=== PATIENT | female | born 1950 | race Caucasian/White ===

== ENCOUNTER → 2016-08-17 | Outpatient (CLI) | payer MEDICARE ==
--- NOTE | 2016-08-17 10:18 | MM ---
Reason for exam: screening (asymptomatic). Last mammogram was performed 2 years and 2 months ago. History: Patient is postmenopausal. Family history of breast cancer in maternal aunt and breast cancer in maternal grandmother. 4 benign cyst aspirations of the left breast. Benign cyst aspiration of the right breast. Taking estrogen for 11 years beginning at age 42. Taking progesterone for 11 years beginning at age 42. Taking other hormone for 23 years beginning at age 34. Physical Findings: A clinical breast exam by your physician is recommended on an annual basis and results should be correlated with mammographic findings. MG 3D Screening Mammo W/Cad Bilateral CC and MLO view(s) were taken. Prior study comparison: June 04, 2014, bilateral MG screening mammo w CAD. November 07, 2012, bilateral digital screening mammo w/CAD. There are scattered fibroglandular densities. No significant changes when compared with prior studies. ASSESSMENT: Benign, BI-RAD 2 RECOMMENDATION: Routine screening mammogram of both breasts in 1 year.
== END | disposition home or self-care (01) ==
LOC: RADMAMWWP 08:14
PROVIDERS: ATTEND Obstetrics & Gynecology
DX: Z12.31 Encounter for screening mammogram for malignant neoplasm of breast (principal)
CPT/HCPCS: 77063; G0202

== ENCOUNTER 2016-09-06 08:28 | Day surgery (SDC) | payer MEDICARE ==
[2016-09-04 14:41] VITALS: BMI 26.6
[~2016-09-06 08:28] MED LIST: DEXAMETHASONE SOD PHOSPHATE 10 MG/ML 1 ML VIAL IV ONE; HYDROmorphone 1 MG/ML 1 ML SYRINGE IVP PRN; LACTATED RINGERS 1,000 ML IV SCH; ONDANSETRON 4 MG/2 ML VIAL IVP ONE
[2016-09-06 09:18] VITALS: RESP 16; TEMP 97.8
[2016-09-06] MEDS ORDERED: LIDOCAINE 1% 20 ML VIAL (10MG/ML) FOR IV START INTRADERMA ONE (09:25)
[2016-09-06] MEDS ORDERED: PROPOFOL 10 MG/ML 20 ML VIAL IV ONE (09:28)
[2016-09-06] MEDS ORDERED: LIDOCAINE 1% INJ 10MG/ML (20 ML MDV) ONE (09:28)
--- NOTE | 2016-09-06 10:14 | P.PCN ---
Date of Procedure: 09/06/16 Procedure(s) Performed: Procedure: 1. Esophagogastroduodenoscopy and biopsy. 2. Total colonoscopy. Preoperative diagnosis: Chronic reflux symptoms requiring therapy. Screening for colon neoplasia. Postoperative diagnosis: 1. Small sliding hiatal hernia with no obvious esophagitis or complicated reflux disease. 2. Mild antral gastritis. 3. Mild sigmoid diverticulosis. Preparation: HalfLytely prep. Sedation: Was provided by anesthesia. Brief clinical history: The patient is a 65-year-old female who is referred for this evaluation for the above reasons. She had prior upper endoscopies and colonoscopies, the last were several years back. There is no history of dysphagia or other alarm symptoms or bleeding. Procedure: With the patient on her left lateral decubitus position and after informed consent and adequate sedation, I passed the Olympus-GIF 160 video upper endoscope through the cricopharyngeus down the esophagus. GE junction was around 38 cm from the incisors and there was a small sliding hiatal hernia. The esophagus did not show any erosions, ulcers, strictures or Rondon's esophagus. The endoscope was then passed into the stomach which was insufflated with air and inspected in detail including the retroflex view in the cardia. There was some mottling and erythema in the antrum but no ulcers or erosions. Pyloric channel, duodenal bulb, post bulbar area and descending duodenum appeared within normal limits. I obtained biopsies from the duodenum, antrum and esophagus then the endoscope was withdrawn and I proceeded with the colonoscopy. Perianal area did not show any fissures or fistulas. There were no masses felt on digital rectal examination. The Olympus CFQ 160L video colonoscope was then inserted in the rectum in the usual fashion and advanced to the cecum. There were few small diverticular orifices seen scattered in the sigmoid but I saw no evidence of acute diverticulitis or strictures. The mucosa appeared healthy. No polyps or tumors were seen. The patient tolerated the procedure well. Plan: The patient was reassured. Discussed dietary measures. Will await biopsy results and make further plans based on her course. I recommend repeat screening colonoscopy in 10 years. She will follow-up with you as planned.
[2016-09-06 10:57] VITALS: BP 120/66; PULSE 66
== END 2016-09-06 11:00 | disposition home or self-care (01) ==
LOC: ORWHC2ENDO 08:28
DX: Z12.11 Encounter for screening for malignant neoplasm of colon (principal); K21.0 Gastro-esophageal reflux disease with esophagitis; K44.9 Diaphragmatic hernia without obstruction or gangrene; K29.50 Unspecified chronic gastritis without bleeding; K57.30 Diverticulosis of large intestine without perforation or abscess without bleeding; I10 Essential (primary) hypertension; E78.5 Hyperlipidemia, unspecified; J45.909 Unspecified asthma, uncomplicated; E07.9 Disorder of thyroid, unspecified; Z79.82 Long term (current) use of aspirin; Z79.899 Other long term (current) drug therapy; Z88.1 Allergy status to other antibiotic agents; Z88.5 Allergy status to narcotic agent; Z88.8 Allergy status to other drugs, medicaments and biological substances
CPT/HCPCS: 88305; 88342; 43239; J2001; J2704; G0121; 45378

== ENCOUNTER → 2017-01-25 | Outpatient (CLI) | payer MEDICARE ==
[2017-01-25 09:22] LABS: Basophils # (A) 0.1 k/uL (0-0.2); Basophils % (A) 2 %; CH 33.1; CHCM 33.9; Eosinophils # (A) 0.2 k/uL (0-0.7); Eosinophils % (A) 4 %; HCT 46.4 % (34.0-46.0); HDW 2.35; HGB 15.1 gm/dL (11.4-16.0); Luc # (Auto) 0.13; Luc % (Auto) 2; Lymphocytes # (A) 2.7 k/uL (1.0-4.8); Lymphocytes % (A) 51 %; MCHC 32.6 g/dL (31.0-37.0); MCV 98.2 fL (80.0-100.0); Mean Platelet Volume 7.1; Monocytes # (A) 0.4 k/uL (0-1.0); Monocytes % (A) 7 %; Neutrophils # (A) 1.8 k/uL (1.3-7.7); Neutrophils % (A) 34 %; RBC 4.72 m/uL (3.80-5.40); RDW 13.7 % (11.5-15.5); WBC 5.4 k/uL (3.8-10.6); WBC (Perox) 5.42
[2017-01-25 09:36] LABS: ALT 36 U/L (9-52); AST 22 U/L (14-36); Alkaline Phosphatase 71 U/L (38-126); Anion Gap 8 mmol/L; Blood Urea Nitrogen 16 mg/dL (7-17); Calcium 9.7 mg/dL (8.4-10.2); Carbon Dioxide 28 mmol/L (22-30); Chloride 107 mmol/L (98-107); Cholesterol 164 mg/dL (<200); Glucose 90 mg/dL (74-99); HDL Cholesterol 59 mg/dL (40-60); Non-African American GFR(MDRD) >60 (>60 ml/min/1.73 sqM); Potassium 4.6 mmol/L (3.5-5.1); Sodium 143 mmol/L (137-145); Total Bilirubin 0.5 mg/dL (0.2-1.3); Total Protein 7.8 g/dL (6.3-8.2)
[2017-01-25 10:11] LABS: Manual Review Performed; RBC Morphology Normal
== END | disposition home or self-care (01) ==
LOC: LABWHC1 09:05
PROVIDERS: ATTEND Internal Medicine
DX: E78.5 Hyperlipidemia, unspecified (principal); E03.9 Hypothyroidism, unspecified; I10 Essential (primary) hypertension
CPT/HCPCS: 36415; 80053; 80061; 84439; 84443; 85025

== ENCOUNTER → 2017-10-09 | Outpatient (CLI) | payer MEDICARE ==
[2017-10-09 13:05] LABS: HCT 42.5 % (34.0-46.0); HGB 14.3 gm/dL (11.4-16.0); MCH 32.3 pg (25.0-35.0); MCHC 33.7 g/dL (31.0-37.0); Mean Platelet Volume 6.4; Platelet Count 311 k/uL (150-450); RBC 4.43 m/uL (3.80-5.40); RDW 13.2 % (11.5-15.5); WBC 6.7 k/uL (3.8-10.6)
[2017-10-09 13:12] LABS: Potassium 4.2 mmol/L (3.5-5.1)
== END ==
LOC: LABPAT 12:05
PROVIDERS: ATTEND Internal Medicine Interventional Cardiology
DX: Z01.812 Encounter for preprocedural laboratory examination (principal); R07.9 Chest pain, unspecified
CPT/HCPCS: 36415; 80051; 82565; 84520; 85027

== ENCOUNTER 2017-10-18 09:29 | Day surgery (SDC) | payer MEDICARE ==
[2017-10-11 15:30] VITALS: BMI 25.8
[~2017-10-18 09:29] MED LIST changes: +ALPRAZolam 0.25 MG TAB PO PRN; +ALPRAZolam 0.5 MG TAB PO PRN; +ASPIRIN 325 MG TAB PO STA; +ATORVASTATIN 80 MG TAB PO STA; -DEXAMETHASONE SOD PHOSPHATE 10 MG/ML 1 ML VIAL IV ONE; -HYDROmorphone 1 MG/ML 1 ML SYRINGE IVP PRN; -LACTATED RINGERS 1,000 ML IV SCH; +NITROGLYCERIN SL TABS 0.4 MG TAB SUBLINGUAL PRN; -ONDANSETRON 4 MG/2 ML VIAL IVP ONE; +SODIUM CHLORIDE 0.9% 1,000 ML in EMPTY BAG 1 BAG IV ONE
[2017-10-18 10:08] VITALS: TEMP 97.7
[2017-10-18] MEDS ORDERED: MIDAZOLAM 2 MG/2 ML VIAL ONE (10:51)
[2017-10-18] MEDS ORDERED: MIDAZOLAM 2 MG/2 ML VIAL IVP ONE (11:04)
[2017-10-18] MEDS ORDERED: LIDOCAINE 2% INJ 20 MG/ML SQ ONE (11:07)
[2017-10-18] MEDS: VERAPAMIL SYRINGE (5 MG/10 ML) INTRAARTER ONE ×2 (11:08→11:16)
[2017-10-18] MEDS ORDERED: HEPARIN SODIUM 1,000 UN/ML (10ML VL) IV ONE (11:10)
[2017-10-18] MEDS ORDERED: IOPAMIDOL-370 125ML BTL INJ ONE (11:17)
[2017-10-18] MEDS ORDERED: RX INFO: IV CONTRAST WAS GIVEN 1 EACH MISC MISCELLANE PRN (11:25)
[2017-10-18] MEDS ORDERED: SODIUM CHLORIDE 0.9% 1,000 ML IV SCH (11:30)
[2017-10-18 11:54] VITALS: RESP 20
--- NOTE | 2017-10-18 14:03 | CC ---
CARDIAC CATHETERIZATION REPORT DATE OF SERVICE: 10/18/2017 PERFORMING PHYSICIAN: Robert Victor MD, artificial foliage arranger. PROCEDURE PERFORMED: 1. Selective right and left coronary angiogram. 2. Left heart catheterization. INDICATION: This is a pleasant 66-year-old female patient who was experiencing exertional chest discomfort and shortness of breath concerning for angina. She does have hypertension and dyslipidemia. APPROACH: Right radial artery. COMPLICATION: None. LEVEL OF SEDATION: Moderate with sedation length of 12 minutes. PROCEDURE DESCRIPTION: After obtaining an informed consent, the patient was brought to cardiac laborer road. The right radial artery was cannulated using micropuncture technique and a micropuncture wire passed easily then I placed a 6-Spanish sheath in the right radial artery. After that, I did selective right and left coronary angiogram using JR4 and JL3.5 catheters. The left heart catheterization was performed using the JR4 catheter which flipped into the LV then I did pullback. The procedure was completed without any complications. SELECTIVE CORONARY ANGIOGRAM: 1. The RCA is a large caliber vessel and it is a dominant vessel. It is angiographically normal. 2. The left main is angiographically normal. It bifurcates into the left circumflex and left anterior descending artery. 3. The left circumflex is a large caliber vessel and it is a nondominant vessel. The proximal circ is angiographically normal. The mid circ is normal and gives rise into a large OM branch which seems to be angiographically normal and the circ distally is angiographically normal. 4. The LAD; the proximal LAD is angiographically normal. The mid LAD is normal as well and gives rise in 2 diagonal branches and LAD distally is angiographically normal. HEMODYNAMICS: The left ventricular end-diastolic pressure was 12 mmHg and no gradient was seen across the aortic valve. CONCLUSION: Normal coronary angiogram. POSTPROCEDURE MANAGEMENT: Medical treatment and follow up with the patient. MMODL / IJN: [id number] /
--- NOTE | 2017-10-18 14:30 | LTR ---
October 18, 2017 Re: Tessa Lunsford Dear Dr. Root: Ms. Yolis Lunsford underwent a heart catheterization today and that revealed normal coronaries. I want to thank you for allowing me to participate in her care and please do not hesitate to call if you have any question or concern. Sincerely, MD JACQUELYN Jacob / PADILLA: [id number] /
[2017-10-18] MEDS ORDERED: ACETAMINOPHEN TAB 325 MG TAB PO STA (14:33)
[2017-10-18 16:08] VITALS: BP 104/60; PULSE 60
== END 2017-10-18 16:00 | disposition home or self-care (01) ==
LOC: CATHCVL 09:29
PROVIDERS: ATTEND Internal Medicine Interventional Cardiology
DX: R07.89 Other chest pain (principal); R06.02 Shortness of breath; I10 Essential (primary) hypertension; E78.00 Pure hypercholesterolemia, unspecified; E78.5 Hyperlipidemia, unspecified; Z82.49 Family history of ischemic heart disease and other diseases of the circulatory system; Z79.82 Long term (current) use of aspirin; Z79.899 Other long term (current) drug therapy; Z88.5 Allergy status to narcotic agent; Z88.1 Allergy status to other antibiotic agents
CPT/HCPCS: 93458; J2001; J2250; J1644; Q9967

== ENCOUNTER → 2017-12-16 | Outpatient (CLI) | payer MEDICARE ==
[2017-12-17 10:28] LABS: Almond IgE <0.35 kU/L (<0.35); Almond IgE Class CLASS 0; Beef IgE <0.35 kU/L (<0.35); Beef IgE Class CLASS 0; Cucumber IgE <0.35 kU/L (<0.35); Cucumber IgE Class CLASS 0; Gluten IgE Class CLASS 0; Pork IgE Class CLASS 0; Yeast Bakers/Brew IgE <0.35 kU/L (<0.35)
[2017-12-17 10:29] LABS: Chicken IgE Class CLASS 0; Chocolate IgE Class CLASS 0; Cow's Milk IgE Class CLASS 0; Egg White IgE 1.16 kU/L (<0.35); Peanut IgE <0.35 kU/L (<0.35); Potato IgE <0.35 kU/L (<0.35); Potato IgE Class CLASS 0; Soybean IgE <0.35 kU/L (<0.35)
[2017-12-17 10:30] LABS: Avocado Class CLASS I; Banana IgE Class CLASS 0; Hazelnut IgE <0.35 kU/L (<0.35); Hazelnut IgE Class CLASS 0; Kiwi IgE <0.35 kU/L (<0.35)
[2017-12-17 10:31] LABS: Coffee IgE <0.35 kU/L (<0.35); Coffee IgE Class CLASS 0; Tea IgE <0.35 kU/L (<0.35)
== END | disposition home or self-care (01) ==
LOC: LABWHC1 09:25
PROVIDERS: ATTEND Otolaryngology
DX: J30.89 Other allergic rhinitis (principal)
CPT/HCPCS: 36415; 86003

== ENCOUNTER → 2018-01-20 | Outpatient (CLI) | payer MEDICARE ==
[2018-01-20 11:15] LABS: Basophils % (A) 1 %; Eosinophils # (A) 0.2 k/uL (0-0.7); Eosinophils % (A) 3 %; HCT 46.3 % (34.0-46.0); HGB 14.4 gm/dL (11.4-16.0); Lymphocytes # (A) 2.3 k/uL (1.0-4.8); Lymphocytes % (A) 44 %; MCH 30.7 pg (25.0-35.0); MCHC 31.2 g/dL (31.0-37.0); MCV 98.6 fL (80.0-100.0); Mean Platelet Volume 6.4; Monocytes # (A) 0.4 k/uL (0-1.0); Monocytes % (A) 7 %; Neutrophils # (A) 2.3 k/uL (1.3-7.7); Neutrophils % (A) 44 %; Platelet Count 305 k/uL (150-450); RDW 13.2 % (11.5-15.5); WBC 5.3 k/uL (3.8-10.6)
[2018-01-20 11:39] LABS: ALT 35 U/L (9-52); AST 24 U/L (14-36); Albumin 4.4 g/dL (3.5-5.0); Alkaline Phosphatase 70 U/L (38-126); Anion Gap 6 mmol/L; Blood Urea Nitrogen 12 mg/dL (7-17); Carbon Dioxide 29 mmol/L (22-30); Chloride 106 mmol/L (98-107); Cholesterol 179 mg/dL (<200); Glucose 95 mg/dL (74-99); HDL Cholesterol 54 mg/dL (40-60); LDL Cholesterol,Calculated 91 mg/dL (0-99); Potassium 4.7 mmol/L (3.5-5.1); Sodium 141 mmol/L (137-145); Total Bilirubin 0.6 mg/dL (0.2-1.3); Total Protein 7.3 g/dL (6.3-8.2); Triglycerides 171 mg/dL (<150)
[2018-01-20 11:54] LABS: T4, Free (Free Thyroxine) 1.68 ng/dL (0.78-2.19)
== END | disposition home or self-care (01) ==
LOC: LABWHC1 10:23
PROVIDERS: ATTEND Internal Medicine
DX: Z00.00 Encounter for general adult medical examination without abnormal findings (principal); E78.5 Hyperlipidemia, unspecified; I10 Essential (primary) hypertension; M81.0 Age-related osteoporosis without current pathological fracture
CPT/HCPCS: 36415; 80053; 80061; 82306; 84439; 84443; 85025

== ENCOUNTER → 2018-02-18 | Outpatient (CLI) | payer MEDICARE ==
--- NOTE | 2018-02-18 14:46 | BD ---
EXAMINATION TYPE: Axial Bone Density DATE OF EXAM: 02/18/2018 COMPARISON: 02.17.2010 CLINICAL HISTORY: 67 YR OLD FEMALE....ICD-10 CODE: Z13.820 OSTEOPOROSIS Height: 64 Weight: 166 FRAX RISK QUESTIONS: History of Fracture in Adulthood: YES Secondary Osteoporosis: YES 3. Menopause before 45: YES, AT 43 YRS OLD RISK FACTORS HISTORY OF: FX TO TIB FIB AT AGE 42 History of Wrist Fracture: LT WRIST CHILD Surgery to Spine....FX TO L5 SI AT AGE 62 Diet low in dairy products/other sources of calcium: NO Postmenopausal woman: YES AT AGE 43 YRS OLD Take estrogen and/or progesterone medications: HRT FOR 10-15 YRS IN PAST, VAGINAL ESTROGEN CREAM NOW MEDICATIONS: Prednisone or other steroids: INHALER FOR ASTHMA PRN How Long: FOR YRS Thyroid Medications: YES, SYNTHROID...FOR ABOUT 30+ YRS Additional Medications: BP MEDS, XANAX PRN, REFLUX MEDS, STATINS FOR CHOLESTEROL, VIT D Additional History: NOTHING ADDITIONAL TO ADD EXAM MEASUREMENTS: Bone mineral densitometry was performed using the Friend Traveler System. Bone mineral density as measured about the Lumbar spine is: ----- L1-L4(G/cm2): 1.013 T Score Values are as follows: ----- L1: -0.7 ----- L2: -2.1 ----- L3: -1.8 ----- L4: -1.2 ----- L1-L4: -1.4 Bone mineral density has: Increased 0.2% since study of: 02.17.2010 Bone mineral density about the R hip (g/cm2): 0.735 Bone mineral density about the L hip (g/cm2): 0.781 T Score values are as follows: -----R Neck: -2.0 -----L Neck: -2.0 -----R Total: -2.2 -----L Total: -1.8 Bone mineral density has: Decreased -6.2% since study of: 02.17.2010 FRAX%s: THERE IS A 18.2% CHANCE OF A MAJOR OSTEOPOROTIC FX AND A 3.1% FOR HIP FX....PROBABILITY OF FX IN 10 YRS TIME IMPRESSION: Osteopenia (T Score between -2.5 and -1). There is slightly increased risk of fracture and the patient may be considered for treatment. Re-Screen 2-5 years. NOTE: T-SCORE=SD OF THE YOUNG ADULT MEAN.
--- NOTE | 2018-02-19 09:19 | MM ---
Reason for exam: screening (asymptomatic). Last mammogram was performed 1 year and 6 months ago. History: Patient is postmenopausal. Family history of breast cancer in maternal aunt and breast cancer in maternal grandmother. 4 benign cyst aspirations of the left breast. Benign cyst aspiration of the right breast. Taking estrogen for 11 years beginning at age 42. Taking progesterone for 11 years beginning at age 42. Taking other hormone for 23 years beginning at age 34. Physical Findings: A clinical breast exam by your physician is recommended on an annual basis and results should be correlated with mammographic findings. MG 3D Screening Mammo W/Cad Bilateral CC and MLO view(s) were taken. Prior study comparison: August 17, 2016, bilateral MG 3d screening mammo w/cad. June 04, 2014, bilateral MG screening mammo w CAD. The breast tissue is heterogeneously dense. This may lower the sensitivity of mammography. Stable benign calcifications. There is no discrete abnormality. No significant changes when compared with prior studies. ASSESSMENT: Benign, BI-RAD 2 RECOMMENDATION: Routine screening mammogram of both breasts in 1 year.
== END | disposition home or self-care (01) ==
LOC: RADMAMWWP 08:24
PROVIDERS: ATTEND Internal Medicine
DX: Z12.31 Encounter for screening mammogram for malignant neoplasm of breast (principal); M85.80 Other specified disorders of bone density and structure, unspecified site; M81.0 Age-related osteoporosis without current pathological fracture
CPT/HCPCS: 77063; 77067; 77080

== ENCOUNTER → 2019-01-06 | Outpatient (CLI) | payer MEDICARE ==
--- NOTE | 2019-01-06 16:03 | US ---
EXAMINATION TYPE: US carotid duplex BILAT DATE OF EXAM: 01/06/2019 COMPARISON: NONE CLINICAL HISTORY: R09.89 Other specified symptoms and signs involving. Bruit EXAM MEASUREMENTS: RIGHT: Peak Systolic Velocity (PSV) cm/sec ----- Right CCA: 78.4 ----- Right ICA: 88.7 ----- Right ECA: 142.1 ICA/CCA ratio: 1.1 RIGHT: End Diastole cm/sec ----- Right CCA: 22.3 ----- Right ICA: 36.6 ----- Right ECA: 29.3 LEFT: Peak Systolic Velocity (PSV) cm/sec ----- Left CCA: 66.0 ----- Left ICA: 99.8 ----- Left ECA: 98.7 ICA/CCA ratio: 1.5 LEFT: End Diastole cm/sec ----- Left CCA: 24.7 ----- Left ICA: 38.1 ----- Left ECA: 22.7 VERTEBRALS (direction of flow): Right Vertebral: Antegrade Left Vertebral: Antegrade Rhythm: Normal Bilateral intimal thickening, elevated velocity: right proximal ECA, no significant stenosis. IMPRESSION: Mild degree of grayscale atheromatous plaquing with no sonographically evident hemodynam ically significant stenosis within either visualized common carotid artery or external carotid artery . 50-69% stenosis is incidentally seen within the right external carotid artery. Criteria for Assigning % of Stenosis / Diameter reduction (Estimation based on the indirect measurements of the internal carotid artery velocities (ICA PSV). 1. Normal (no stenosis)=ICA PSV < 125 cm/s: ratio < 2.0: ICA EDV<40 cm/s. 2. Less than 50% stenosis=ICA PSV < 125 cm/s: ratio < 2.0: ICA EDV<40 cm/s. 3. 50 to 69% stenosis=ICA PSV of 125 to 230 cm/s: ration 2.0 ? 4.0: ICA EDV 40-100 cm/s. 4. Greater than 70% stenosis to near occlusion= ICA PSV > 230 cm/s: ratio > 4.0: ICA EDV > 100 cm/s. 5. Near occlusion= ICA PSV velocities may be low or undetectable: variable ratio and ICA EDV. 6. Total occlusion=unable to detect flow.
== END | disposition home or self-care (01) ==
LOC: RADUSWWP 15:29
PROVIDERS: ATTEND Internal Medicine
DX: I65.23 Occlusion and stenosis of bilateral carotid arteries (principal)
CPT/HCPCS: 93880

== ENCOUNTER → 2019-02-03 | Outpatient (CLI) | payer MEDICARE ==
[2019-02-03 11:53] LABS: Basophils # (A) 0.1 k/uL (0-0.2); Basophils % (A) 1 %; Eosinophils # (A) 0.4 k/uL (0-0.7); Eosinophils % (A) 7 %; HCT 42.1 % (34.0-46.0); HGB 13.9 gm/dL (11.4-16.0); Lymphocytes # (A) 2.3 k/uL (1.0-4.8); Lymphocytes % (A) 44 %; MCH 32.4 pg (25.0-35.0); MCHC 32.9 g/dL (31.0-37.0); MCV 98.6 fL (80.0-100.0); Mean Platelet Volume 6.9; Monocytes # (A) 0.4 k/uL (0-1.0); Monocytes % (A) 7 %; Neutrophils # (A) 2.1 k/uL (1.3-7.7); Neutrophils % (A) 39 %; Platelet Count 274 k/uL (150-450); RBC 4.28 m/uL (3.80-5.40); RDW 14.5 % (11.5-15.5); WBC 5.2 k/uL (3.8-10.6)
[2019-02-03 17:42] LABS: T4, Free (Free Thyroxine) 1.9 ng/dL (0.80-1.80)
[2019-02-03 17:52] LABS: African American GFR (CKD) 87.8 (60.0-200.0); Albumin 4.2 g/dL (3.80-4.90); Albumin/Globulin Ratio 1.91 (1.60-3.17); Anion Gap 7.1 mmol/L (4.00-12.00); BUN/Creat Ratio 21.25 Ratio (12.00-20.00); Calcium 9.5 mg/dL (8.7-10.3); Carbon Dioxide 27.9 mmol/L (21.6-31.8); Chol/HDL Ratio 2.32; Globulin 2.2 g/dL (1.6-3.3); LDL Cholesterol,Calculated 58.8 mg/dL (0.0-131.0); Potassium 4.1 mmol/L (3.5-5.5); Total Bilirubin 0.5 mg/dL (0.3-1.2); Total Protein 6.4 g/dL (6.2-8.2); VLDL Calculation 11.2 mg/dL (5.00-40.00)
== END | disposition home or self-care (01) ==
LOC: LABWHC1 10:18
PROVIDERS: ATTEND Internal Medicine
DX: Z00.00 Encounter for general adult medical examination without abnormal findings (principal); E03.9 Hypothyroidism, unspecified; E55.9 Vitamin D deficiency, unspecified; E78.01 Familial hypercholesterolemia
CPT/HCPCS: 36415; 80053; 80061; 82306; 84439; 84443; 85025

== ENCOUNTER → 2019-02-20 | Outpatient (CLI) | payer MEDICARE ==
--- NOTE | 2019-02-24 08:19 | MM ---
Reason for exam: screening (asymptomatic). Last mammogram was performed 1 year ago. History: Patient is postmenopausal. Family history of breast cancer in maternal aunt and breast cancer in maternal grandmother. 4 benign cyst aspirations of the left breast. Benign cyst aspiration of the right breast. Taking estrogen for 11 years beginning at age 42. Taking progesterone for 11 years beginning at age 42. Taking other hormone for 23 years beginning at age 34. Physical Findings: A clinical breast exam by your physician is recommended on an annual basis and results should be correlated with mammographic findings. MG 3D Screening Mammo W/Cad Bilateral CC and MLO view(s) were taken. Prior study comparison: February 18, 2018, bilateral MG 3d screening mammo w/cad. August 17, 2016, bilateral MG 3d screening mammo w/cad. The breast tissue is heterogeneously dense. This may lower the sensitivity of mammography. No significant changes when compared with prior studies. ASSESSMENT: Negative, BI-RAD 1 RECOMMENDATION: Routine screening mammogram of both breasts in 1 year.
== END | disposition home or self-care (01) ==
LOC: RADMAMWWP 08:56
PROVIDERS: ATTEND Internal Medicine
DX: Z12.31 Encounter for screening mammogram for malignant neoplasm of breast (principal)
CPT/HCPCS: 77063; 77067

== ENCOUNTER → 2020-10-25 | Outpatient (CLI) | payer MEDICARE ==
--- NOTE | 2020-10-28 11:02 | MM ---
Reason for exam: screening (asymptomatic). Last mammogram was performed 1 year and 8 months ago. History: Patient is postmenopausal. Family history of breast cancer in maternal aunt and breast cancer in maternal grandmother. 4 benign cyst aspirations of the left breast. Benign cyst aspiration of the right breast. Taking estrogen for 11 years beginning at age 42. Taking progesterone for 11 years beginning at age 42. Taking other hormone for 23 years beginning at age 34. Physical Findings: A clinical breast exam by your physician is recommended on an annual basis and results should be correlated with mammographic findings. MG 3D Screening Mammo W/Cad Bilateral CC and MLO view(s) were taken. Prior study comparison: February 20, 2019, bilateral MG 3d screening mammo w/cad. February 18, 2018, bilateral MG 3d screening mammo w/cad. The breast tissue is heterogeneously dense. This may lower the sensitivity of mammography. ASSESSMENT: Benign, BI-RAD 2 RECOMMENDATION: Routine screening mammogram of both breasts in 1 year.
== END | disposition home or self-care (01) ==
LOC: RADMAMWWP 14:01
PROVIDERS: ATTEND Internal Medicine
DX: Z12.31 Encounter for screening mammogram for malignant neoplasm of breast (principal); Z78.0 Asymptomatic menopausal state; Z80.3 Family history of malignant neoplasm of breast
CPT/HCPCS: 77063; 77067

== ENCOUNTER → 2020-11-17 | Outpatient (CLI) | payer MEDICARE ==
[2020-11-17 15:16] LABS: Basophils # (A) 0.03 X 10*3/uL (0.00-0.10); Basophils % (A) 0.6 %; Eosinophils # (A) 0.15 X 10*3/uL (0.04-0.35); Eosinophils % (A) 2.9 %; HCT 43.7 % (37.2-46.3); HGB 14.2 g/dL (12.0-15.0); Lymphocytes # (A) 2.51 X 10*3/uL (0.90-5.00); Lymphocytes % (A) 48.9 %; MCH 31.8 pg (27.0-32.0); MCHC 32.5 g/dL (32.0-37.0); Monocytes # (A) 0.49 X 10*3/uL (0.20-1.00); Monocytes % (A) 9.6 %; Neutrophils # (A) 1.94 X 10*3/uL (1.80-7.70); Neutrophils % (A) 37.8 %; Platelet Count 272 X 10*3/uL (140-440); RBC 4.46 X 10*6/uL (4.10-5.20); RDW 13.1 % (11.5-14.5); WBC 5.13 X 10*3/uL (4.50-10.00)
[2020-11-17 17:15] LABS: African American GFR (CKD) 75.1 (60.0-200.0); Albumin 4.3 g/dL (3.80-4.90); Albumin/Globulin Ratio 1.72 (1.60-3.17); Anion Gap 5.2 mmol/L (4.00-12.00); BUN/Creat Ratio 15.56 Ratio (12.00-20.00); Calcium 9.3 mg/dL (8.7-10.3); Carbon Dioxide 26.8 mmol/L (21.6-31.8); Chol/HDL Ratio 3.3; Globulin 2.5 g/dL (1.6-3.3); LDL Cholesterol,Calculated 98.4 mg/dL (0.0-131.0); Non-African American GFR(CKD) 64.8 (60.0-200.0); Potassium 3.9 mmol/L (3.5-5.5); Total Bilirubin 0.6 mg/dL (0.3-1.2); Total Protein 6.8 g/dL (6.2-8.2); VLDL Calculation 16.6 mg/dL (5.00-40.00)
== END | disposition home or self-care (01) ==
LOC: LABWHC1 09:47
PROVIDERS: ATTEND Internal Medicine
DX: Z00.00 Encounter for general adult medical examination without abnormal findings (principal); E55.9 Vitamin D deficiency, unspecified
CPT/HCPCS: 36415; 80053; 80061; 82306; 84439; 84443; 85025

== ENCOUNTER → 2021-01-11 | Outpatient (CLI) | payer MEDICARE ==
[2021-01-11 22:38] LABS: T4, Free (Free Thyroxine) 1.4 ng/dL (0.80-1.80)
== END | disposition home or self-care (01) ==
LOC: LABWHC1 09:36
PROVIDERS: ATTEND Internal Medicine
DX: E03.9 Hypothyroidism, unspecified (principal)
CPT/HCPCS: 36415; 84439; 84443

== ENCOUNTER → 2021-02-06 | Outpatient (CLI) | payer MEDICARE | END | disposition home or self-care (01) | LOC: LABWHC1 11:43 | PROVIDERS: ATTEND Ophthalmology Ophthalmic Plastic and Reconstructive Surgery | DX: Z01.818 Encounter for other preprocedural examination (principal); R94.31 Abnormal electrocardiogram [ECG] [EKG] | CPT/HCPCS: 36415; 93005 ==

== ENCOUNTER → 2021-12-05 | Outpatient (CLI) | payer MEDICARE ==
[2021-12-05 10:49] LABS: Basophils # (A) 0.04 X 10*3/uL (0.00-0.10); Basophils % (A) 0.6 %; Eosinophils # (A) 0.08 X 10*3/uL (0.04-0.35); Eosinophils % (A) 1.2 %; HCT 46.3 % (37.2-46.3); HGB 14.6 g/dL (12.0-15.0); Immature Grans, Automated 0.2 %; Lymphocytes # (A) 2.59 X 10*3/uL (0.90-5.00); Lymphocytes % (A) 39.4 %; MCH 31.3 pg (27.0-32.0); MCHC 31.5 g/dL (32.0-37.0); MCV 99.1 fL (80.0-97.0); Monocytes # (A) 0.64 X 10*3/uL (0.20-1.00); Monocytes % (A) 9.7 %; NRBC Per 100 WBC 0 /100 WBCS (0.0-0.0); Neutrophils # (A) 3.22 X 10*3/uL (1.80-7.70); Neutrophils % (A) 48.9 %; Platelet Count 283 X 10*3/uL (140-440); RBC 4.67 X 10*6/uL (4.10-5.20); RDW 13.7 % (11.5-14.5); WBC 6.58 X 10*3/uL (4.50-10.00)
[2021-12-05 11:13] LABS: ALT 25 U/L (8-44); AST 18 U/L (13-35); African American GFR (CKD) 74.6 (60.0-200.0); Albumin 4.6 g/dL (3.8-4.9); Alkaline Phosphatase 61 U/L (41-126); BUN/Creat Ratio 12.56 Ratio (12.00-20.00); Blood Urea Nitrogen 11.3 mg/dL (9.0-27.0); Calcium 9.7 mg/dL (8.7-10.3); Carbon Dioxide 26.7 mmol/L (20.0-27.5); Chloride 102 mmol/L (96-109); Chol/HDL Ratio 3.17 Ratio; Globulin 2.7 g/dL (1.6-3.3); Glucose 105 mg/dL (70-110); LDL Cholesterol,Calculated 107.6 mg/dL (0.0-131.0); Non-African American GFR(CKD) 64.3 (60.0-200.0); Potassium 3.8 mmol/L (3.5-5.5); Sodium 139 mmol/L (135-145); Total Protein 7.3 g/dL (6.2-8.2)
--- NOTE | 2021-12-06 07:51 | MM ---
Reason for Exam: Screening (asymptomatic). Last mammogram was performed 1 year(s) and 1 month(s) ago. Patient History: Menarche at age 12. First Full-Term at age 19. Postmenopausal. Currently using Estrogen, beginning at age 42 for 11 years. Currently using Progesterone, beginning at age 42 for 11 years. Benign Cyst Aspiration on the left side. Benign Cyst Aspiration on the left side. Benign Cyst Aspiration on the left side. Benign Cyst Aspiration on the right side. Benign Cyst Aspiration on the left side. Maternal grandmother had breast cancer. Maternal aunt had breast cancer. Risk Values: Cori 5 year model risk: 1.3%. NCI Lifetime model risk: 3.5%. Prior Study Comparison: 02/18/2018 Bilateral Screening Mammogram, [facility]. 02/20/2019 Bilateral Screening Mammogram, [facility]. 10/25/2020 Bilateral Screening Mammogram, [facility]. Tissue Density: The breast tissue is heterogeneously dense. This may lower the sensitivity of mammography. Findings: Analyzed By CAD. There are a few grouped round calcifications in the right breast anteriorly redemonstrated. There is no suspicious group of microcalcifications or new suspicious mass in either breast. Overall Assessment: Benign, BI-RAD 2 Management: Screening Mammogram of both breasts in 1 year. A clinical breast exam by your physician is recommended on an annual basis and results should be correlated with mammographic findings. Electronically signed and approved by: Patrice Putnam M.D.
== END | disposition home or self-care (01) ==
LOC: RADMAMWWP 07:10
PROVIDERS: ATTEND Internal Medicine
DX: Z12.31 Encounter for screening mammogram for malignant neoplasm of breast (principal); Z80.3 Family history of malignant neoplasm of breast; E78.5 Hyperlipidemia, unspecified; Z78.0 Asymptomatic menopausal state
CPT/HCPCS: 77063; 77067; 80053; 80061; 82306; 84439; 84443; 85025

== ENCOUNTER 2022-02-11 10:13 | Emergency (ER) | payer MEDICARE ==
[2022-02-11 10:32] VITALS: BP 120/68; PULSE 121; RESP 20; TEMP 98.7
--- NOTE | 2022-02-11 10:51 | ED ---
General Adult HPI - General Chief complaint: Upper Respiratory Infection Stated complaint: COVID+ Time Seen by Provider: 02/11/22 10:36 Source: patient, family, RN notes reviewed, old records reviewed Mode of arrival: ambulatory Limitations: no limitations - History of Present Illness Initial comments: This is a well-appearing 71-year-old female that presents with her complaining of testing positive for coronavirus 2 hours ago. States her tested positive on Saturday. She was coming to the emergency room to receive monoclonal antibodies -: hour(s) (2) Location: head Severity scale (1-10): 7 Associated Symptoms: malaise, nausea/vomiting (no vomiting) Treatments Prior to Arrival: none - Related Data Home Medications Medication Instructions Recorded Confirmed Cholecalciferol [Vitamin D3 (25 1,000 unit PO BID 01/20/15 10/11/17 Mcg = 1000 Iu)] Fluticasone Furoate [Veramyst] 1 spray EA NOSTRIL DAILY PRN 01/20/15 10/11/17 Levothyroxine Sodium [Synthroid] 125 mcg PO DAILY 01/20/15 10/11/17 Simvastatin [Zocor] 20 mg PO HS 01/20/15 10/11/17 Ubidecarenone [Co Q-10] 200 mg PO DAILY 01/20/15 10/11/17 Aspirin [Adult Low Dose Aspirin EC] 81 mg PO DAILY 09/04/16 10/18/17 Cetirizine HCl [Zyrtec] 10 mg PO DAILY PRN 09/04/16 10/11/17 Losartan-Hctz 50-12.5 mg [Hyzaar 1 each PO DAILY 09/04/16 10/11/17 50-12.5] buPROPion [Wellbutrin] 100 mg PO BID 09/04/16 10/11/17 ALPRAZolam [Xanax] 0.5 tab PO HS PRN 10/11/17 10/11/17 Amerge 1 tab PO DIRECTED PRN 10/11/17 Ferrous Sulfate [Iron] 325 mg PO DAILY PRN 10/11/17 10/11/17 Metoprolol Tartrate 12.5 mg PO BID 10/11/17 10/11/17 Multivitamins, Thera [Multivitamin 1 tab PO DAILY 10/11/17 10/11/17 (formulary)] Vitamin C/Biotin [Hair, Skin and 1 each PO BID 10/11/17 10/11/17 Nails Chew] estradioL [Yuvafem] 10 mcg VG TUSA 10/11/17 10/11/17 Allergies Allergy/AdvReac Type Severity Reaction Status Date / Time benzonatate Allergy Anaphylaxis Verified 02/11/22 10:26 [From Tessalon Perles] cefuroxime axetil Allergy Anaphylaxis Verified 02/11/22 10:26 [From Ceftin] codeine Allergy Rash/Hives Verified 02/11/22 10:26 erythromycin base Allergy Rash/Hives Verified 02/11/22 10:26 Review of Systems ROS Statement: Those systems with pertinent positive or pertinent negative responses have been documented in the HPI. ROS Other: All systems not noted in ROS Statement are negative. Past Medical History Past Medical History: Asthma, Chest Pain / Angina, GERD/Reflux, Hyperlipidemia, Hypertension, Pneumonia, Thyroid Disorder Additional Past Medical History / Comment(s): environmental allergies, migraines, heart murmer, pneumonia yrs ago, constipation comes and goes, arthritis, dry eyes, History of Any Multi-Drug Resistant Organisms: None Reported Past Surgical History: Cholecystectomy, Orthopedic Surgery, Tubal Ligation Additional Past Surgical History / Comment(s): ORIF right tibia/fibia later removal of hardware. left knee arthroscopy, lasik eye surgery Past Anesthesia/Blood Transfusion Reactions: Family History of Problems w/ Anesthesia, Motion Sickness, Postoperative Nausea & Vomiting (PONV) Additional Past Anesthesia/Blood Transfusion Reaction / Comment(s): mother had hard time waking up. pt states she has dry eyes and when waking up- she can't open her eyes(stuck shut) Past Psychological History: Depression Smoking Status: Never smoker Past Alcohol Use History: Rare Past Drug Use History: None Reported - Past Family History Mother Family Medical History: Cancer General Exam Limitations: no limitations General appearance: alert, in no apparent distress Head exam: Present: atraumatic Eye exam: Present: normal appearance. Absent: scleral icterus, conjunctival injection, periorbital swelling ENT exam: Present: normal oropharynx, mucous membranes moist Neck exam: Present: normal inspection, full ROM. Absent: tenderness, meningismus, lymphadenopathy, thyromegaly Respiratory exam: Present: normal lung sounds bilaterally. Absent: respiratory distress, wheezes, rales, rhonchi, stridor, chest wall tenderness, accessory muscle use Cardiovascular Exam: Present: tachycardia GI/Abdominal exam: Present: soft Extremities exam: Present: normal capillary refill. Absent: pedal edema Neurological exam: Present: alert, oriented X3, normal gait Psychiatric exam: Present: normal affect, normal mood Skin exam: Present: warm, dry, normal color. Absent: cyanosis, diaphoretic, petechiae, pallor Course Vital Signs 02/11/22 10:27 Temperature 98.7 F Pulse Rate 121 H Respiratory 20 Rate Blood Pressure 120/68 O2 Sat by Pulse 96 Oximetry Medical Decision Making - Medical Decision Making 71-year-old female states she developed generalized malaise and headache over the past 2 hours. States that her is positive for coronavirus. She did test positive at home today. She has been vaccinated and boosted. She was hoping to get monoclonal antibodies but agrees to taking the Paxlovid prescription. She was offered an EKG and chest x-ray and declined. She is denying any shortness of breath or chest pain. Patient was offered Motrin and Zofran and declined. Repeat heart rate 80 She was given a prescription for Paxlovid. Her last GFR was within normal limits. Pharmacy did call to confirm medication interaction with Flonase and simvastatin and she was directed to stop those 2 medications for the next 5 days while taking Paxlovid. She was directed to follow up with her primary care doctor this week and return to the emergency room with a new concerning symptoms. Discussed with Dr. Vazquez. Disposition Clinical Impression: COVID-19 Disposition: HOME SELF-CARE Condition: Good Instructions (If sedation given, give patient instructions): Upper Respiratory Infection (ED), COVID-19 (Coronavirus Disease 2019) (ED) Additional Instructions: Increase fluid intake. Vitamin C, vitamin D and zinc daily to improve immune health. Tylenol and/or Motrin as needed for any headaches or body aches. Take the paxlovid as prescribed and follow-up with your primary care doctor next week. Is patient prescribed a controlled substance at d/c from ED?: No Referrals: Taco Root MD [Primary Care Provider] - 1-2 days Time of Disposition: 10:53
== END 2022-02-11 11:00 | disposition home or self-care (01) ==
LOC: EC 10:13
DX: U07.1 COVID-19 (principal); J45.909 Unspecified asthma, uncomplicated; I10 Essential (primary) hypertension; E78.5 Hyperlipidemia, unspecified; E07.9 Disorder of thyroid, unspecified; Z79.51 Long term (current) use of inhaled steroids; Z79.890 Hormone replacement therapy; Z79.899 Other long term (current) drug therapy; Z88.8 Allergy status to other drugs, medicaments and biological substances; Z88.1 Allergy status to other antibiotic agents; Z88.5 Allergy status to narcotic agent
CPT/HCPCS: 99283

== ENCOUNTER → 2023-02-07 | Outpatient (CLI) | payer MEDICARE ==
[2023-02-07 15:21] LABS: ALT 20 U/L (8-44); AST 15 U/L (13-35); Albumin 4.4 d/dL (3.8-4.9); Alkaline Phosphatase 72 U/L (41-126); BUN/Creat Ratio 12.67 Ratio (12.00-20.00); Blood Urea Nitrogen 11.4 mg/dL (9.0-27.0); Calcium 9.4 mg/dL (8.7-10.3); Carbon Dioxide 26.5 mmol/L (21.6-31.8); Chloride 105 mmol/L (96-109); Chol/HDL Ratio 2.94 Ratio; Globulin 2.1 d/dL (1.6-3.3); Glucose 90 mg/dL (70-110); LDL Cholesterol,Calculated 81.6 mg/dL (0.0-131.0); Sodium 142 mmol/L (135-145); T4, Free (Free Thyroxine) 1.47 ng/dL (0.80-1.80); Total Bilirubin 0.4 mg/dL (0.3-1.2); Total Protein 6.5 d/dL (6.2-8.2)
[2023-02-07 16:13] LABS: Basophils # (A) 0.04 X 10*3/uL (0.00-0.10); Basophils % (A) 0.9 %; Eosinophils # (A) 0.13 X 10*3/uL (0.04-0.35); Eosinophils % (A) 2.8 %; HCT 41.4 % (37.2-46.3); Lymphocytes # (A) 2.05 X 10*3/uL (0.90-5.00); Lymphocytes % (A) 44.7 %; MCH 33.3 pg (27.0-32.0); MCHC 33.8 d/dL (32.0-37.0); MCV 98.3 FL (80.0-97.0); Mean Platelet Volume 8.6 FL (9.5-12.2); Monocytes # (A) 0.48 X 10*3/uL (0.20-1.00); Monocytes % (A) 10.5 %; NRBC Per 100 WBC 0 X 10*3/uL (0.00-0.01); Neutrophils # (A) 1.87 X 10*3/uL (1.80-7.70); Neutrophils % (A) 40.7 %; Platelet Count 283 X 10*3/uL (140-440); RBC 4.21 X 10*6/uL (4.10-5.20); RDW 13.5 % (11.5-14.5); WBC 4.59 X 10*3/uL (4.50-10.00)
== END | disposition home or self-care (01) ==
LOC: LABWHC1 08:32
PROVIDERS: ATTEND Internal Medicine
DX: I10 Essential (primary) hypertension (principal); E78.5 Hyperlipidemia, unspecified; E55.9 Vitamin D deficiency, unspecified
CPT/HCPCS: 36415; 80053; 80061; 82306; 83036; 84439; 84443; 85025

== ENCOUNTER → 2023-11-07 | Outpatient (CLI) | payer MEDICARE ==
--- NOTE | 2023-11-11 09:56 | MM ---
Reason for Exam: Screening (asymptomatic). Last mammogram was performed 1 year(s) and 11 month(s) ago. Patient History: Menarche at age 12. First Full-Term at age 19. Postmenopausal. Estrogen, starting at age 42 for 11 years. Progesterone, starting at age 42 for 11 years. Benign Cyst Aspiration on the left side. Benign Cyst Aspiration on the left side. Benign Cyst Aspiration on the left side. Benign Cyst Aspiration on the right side. Benign Cyst Aspiration on the left side. Maternal grandmother had breast cancer, age 60. Maternal aunt had breast cancer, age 70. Risk Values: Cori 5 year model risk: 1.3%. NCI Lifetime model risk: 3.1%. Prior Study Comparison: 02/20/2019 Bilateral Screening Mammogram, [facility]. 10/25/2020 Bilateral Screening Mammogram, [facility]. 12/05/2021 Bilateral MG 3D screening mammo w/cad, [facility]. Tissue Density: The breasts are heterogeneously dense, which may obscure small masses. Findings: Analyzed By CAD. Right breast: There is no suspicious group of microcalcifications or new suspicious mass. Left breast: There is no suspicious group of microcalcifications or new suspicious mass. Overall Assessment: Negative, BI-RAD 1 Management: Screening Mammogram of both breasts in [address] [facility] will attempt to contact patient to return for supplemental views and ultrasound if indicated. Patient should continue monthly self-breast exams. A clinical breast exam by your physician is recommended on an annual basis. This exam should not preclude additional follow-up of suspicious palpable abnormalities. Note on Cori scores and lifetime risk: 1. A Cori score greater than 3% is considered moderate risk. If this is the case, consider specialist referral to assess eligibility for a risk reducing agent. 2. If overall lifetime risk for the development of breast cancer is 20% or higher, the patient may qualify for future screening with alternating mammogram and breast MRI. Electronically signed and approved by: Aris Rodriguez DO
--- NOTE | 2023-11-13 09:03 | BD ---
EXAMINATION TYPE: Axial Bone Density DATE OF EXAM: 11/07/2023 CLINICAL HISTORY: 73 years old Female. ICD-10 CODE: Z78.0 ASYMPTOMATIC MENOPAUSAL Height: 64 Weight: 161 FRAX RISK QUESTIONS: Family History (Parent hip fracture): no History of Fracture in Adulthood: yes Secondary Osteoporosis: yes 3. Menopause before 45: yes,43 RISK FACTORS HISTORY OF: Spine Fracture: yes, L5 S1 When: age 62 History of Wrist Fracture: yes, lt When: as child Surgery to Spine/Hip(right/left)/Wrist (right/left): no MEDICATIONS: Thyroid Medications: yes Which medication: Synthroid How Lon+ years Osteoporosis Medications: no EXAM MEASUREMENTS: Bone mineral densitometry was performed using the [employer] System. Bone mineral density as measured about the Lumbar spine is: ----- L1-L4(G/cm2): 1.016 T Score Values are as follows: ----- L1: -1.1 ----- L2: -2.0 ----- L3: -1.2 ----- L4: -1.4 ----- L1-L4: -1.4 Z Score Values are as follows: ----- L1: 0.3 ----- L2: -0.5 ----- L3: 0.2 ----- L4: 0.1 ----- L1-L4: 0.1 Bone mineral density has: Increased 0.3% since study of: 02/18/2018 Bone mineral density about the R hip (g/cm2): 0.716 Bone mineral density about the L hip (g/cm2): 0.769 T Score values are as follows: -----R Neck: -2.4 -----L Neck: -2.1 -----R Total: -2.3 -----L Total: -1.9 Z Score values are as follows: -----R Neck: -0.7 -----L Neck: -0.4 -----R Total: -0.9 -----L Total: -0.5 Bone mineral density has: Decreased -2.0% since study of: 02/18/2018 FRAX%s: The graph provided illustrates a 22.7% chance for a major osteoporotic fx and a 5.9% chance f or the hips probability for fx in 10 years time. IMPRESSION: Osteopenia (T Score between -2.5 and -1). There is slightly increased risk of fracture and the patient may be considered for treatment. Re-Screen 2-5 years. NOTE: T-SCORE=SD OF THE YOUNG ADULT MEAN.
== END | disposition home or self-care (01) ==
LOC: RADMAMWWP 15:07
PROVIDERS: ATTEND Internal Medicine
DX: Z12.31 Encounter for screening mammogram for malignant neoplasm of breast (principal); M85.89 Other specified disorders of bone density and structure, multiple sites; M81.0 Age-related osteoporosis without current pathological fracture; Z78.0 Asymptomatic menopausal state; Z80.3 Family history of malignant neoplasm of breast
CPT/HCPCS: 77063; 77067; 77080

== ENCOUNTER → 2024-02-10 | Outpatient (CLI) | payer MEDICARE ==
[2024-02-10 15:43] LABS: ALT 23 U/L (8-44); AST 16 U/L (13-35); Albumin 4.4 g/dL (3.8-4.9); Albumin/Globulin Ratio 1.76 Ratio (1.60-3.17); Alkaline Phosphatase 77 U/L (41-126); Blood Urea Nitrogen 17.2 mg/dL (9.0-27.0); Calcium 9.9 mg/dL (8.7-10.3); Carbon Dioxide 27.9 mmol/L (21.6-31.8); Chloride 105 mmol/L (96-109); Chol/HDL Ratio 3.21 Ratio; Globulin 2.5 g/dL (1.6-3.3); Glucose 101 mg/dL (70-110); Potassium 4.2 mmol/L (3.5-5.5); Sodium 143 mmol/L (135-145); T4, Free (Free Thyroxine) 1.31 ng/dL (0.80-1.80); Total Bilirubin 0.2 mg/dL (0.3-1.2); Total Protein 6.9 g/dL (6.2-8.2)
[2024-02-10 16:53] LABS: Basophils # (A) 0.04 X 10*3/uL (0.00-0.10); Basophils % (A) 0.7 %; Eosinophils # (A) 0.26 X 10*3/uL (0.04-0.35); Eosinophils % (A) 4.8 %; HCT 43.1 % (37.2-46.3); Lymphocytes # (A) 2.24 X 10*3/uL (0.90-5.00); Lymphocytes % (A) 41.3 %; MCHC 32.5 g/dL (32.0-37.0); MCV 101.7 FL (80.0-97.0); Mean Platelet Volume 9.3 FL (9.5-12.2); Monocytes # (A) 0.62 X 10*3/uL (0.20-1.00); Monocytes % (A) 11.4 %; NRBC Per 100 WBC 0 X 10*3/uL (0.00-0.01); Neutrophils # (A) 2.24 X 10*3/uL (1.80-7.70); Neutrophils % (A) 41.4 %; Platelet Count 284 X 10*3/uL (140-440); RBC 4.24 X 10*6/uL (4.10-5.20); RDW 13.7 % (11.5-14.5); WBC 5.42 X 10*3/uL (4.50-10.00)
== END | disposition home or self-care (01) ==
LOC: LABWHC1 08:55
PROVIDERS: ATTEND Internal Medicine
DX: E78.5 Hyperlipidemia, unspecified (principal); I10 Essential (primary) hypertension; E55.9 Vitamin D deficiency, unspecified; M85.80 Other specified disorders of bone density and structure, unspecified site
CPT/HCPCS: 36415; 80053; 80061; 82306; 83036; 84439; 84443; 85025

== ENCOUNTER 2024-11-24 09:14 | Day surgery (SDC) | payer MEDICARE ==
[2024-11-20 12:04] VITALS: BMI 23.6
[~2024-11-24 09:14] MED LIST changes: -ALPRAZolam 0.25 MG TAB PO PRN; -ALPRAZolam 0.5 MG TAB PO PRN; -ASPIRIN 325 MG TAB PO STA; -ATORVASTATIN 80 MG TAB PO STA; +LIDOCAINE 1% (10MG/ML) FOR IV START INTRADERMA PRN; -NITROGLYCERIN SL TABS 0.4 MG TAB SUBLINGUAL PRN; +ONDANSETRON 4 MG/2 ML VIAL IVP PRN; -SODIUM CHLORIDE 0.9% 1,000 ML in EMPTY BAG 1 BAG IV ONE
[2024-11-24] MEDS: IV FLUID CONTINUATION 1,000 ML IV ONE (09:39)
[2024-11-24 09:42] VITALS: RESP 18; TEMP 98.1
[2024-11-24] MEDS: LACTATED RINGERS 1,000 ML IV SCH (09:47)
[2024-11-24] MEDS ORDERED: PROPOFOL 10 MG/ML 20 ML VIAL IV ONE (09:54)
--- NOTE | 2024-11-24 10:09 | P.PCN ---
Date of Procedure: 11/24/24 Procedure(s) Performed: BRIEF HISTORY: Patient is a 70-year-old, pleasant, white female scheduled for an upper endoscopy as a part of e evaluation of epigastric pain, abdominal bloating and GERD for the last several years duration. Symptoms are progressively getting worse for the last 6 months. He is on omeprazole 20 mg twice daily and continues to be symptomatic in his skin for an upper endoscopy to evaluate further.. PROCEDURE PERFORMED: Esophagogastroduodenoscopy with biopsy. PREOPERATIVE DIAGNOSIS: Chronic epigastric pain, abdominal bloating and history of GERD. IV sedation per anesthesia. PROCEDURE: After informed consent was obtained, the patient was brought into the endoscopy unit. IV sedation was administered by Anesthesia under continuous monitoring. Initially the Olympus GIF-140 video endoscope was inserted into the mouth. Esophagus intubated without any difficulty. It was gradually advanced into the stomach and duodenum and carefully examined. The bulb and the second part of the duodenum appeared normal. The scope at this time was withdrawn to the stomach, adequately insufflated with air, and upon careful examination, mucosa of the antrum, had mild diffuse gastritis and biopsies were done from this area. Multiple small gastric polyps noted in the gastric body which were biopsied. Rest of the body, cardia and the fundus appeared normal. The scope was then withdrawn into the esophagus. Small sliding-type hiatal hernia noted. The GE junction was located at 39 cm from the incisors. The esophagus appeared normal. Biopsies were done from the distal esophagus. There were no erosions or ulcerations seen and the patient tolerated the procedure well. IMPRESSION: 1. Mild antral gastritis. 2. Multiple gastric polyps 3. Small hiatal hernia. RECOMMENDATIONS: The findings of this examination were discussed with the patient as well as her family. She was advised to follow-up with the biopsy results. Continue with omeprazole 20 mg twice daily and follow antireflux measures. Follow-up in the office in 2 to 3 weeks..
[2024-11-24 10:38] VITALS: BP 108/64; PULSE 73
== END 2024-11-24 11:03 ==
LOC: ORWHC2ENDO 09:14
PROVIDERS: ATTEND Internal Medicine Gastroenterology
DX: K29.50 Unspecified chronic gastritis without bleeding (principal); K31.7 Polyp of stomach and duodenum; K21.9 Gastro-esophageal reflux disease without esophagitis; K44.9 Diaphragmatic hernia without obstruction or gangrene; I10 Essential (primary) hypertension; E78.5 Hyperlipidemia, unspecified; J45.909 Unspecified asthma, uncomplicated; E03.9 Hypothyroidism, unspecified; G89.29 Other chronic pain; Z79.899 Other long term (current) drug therapy; Z79.890 Hormone replacement therapy; Z90.49 Acquired absence of other specified parts of digestive tract; Z88.8 Allergy status to other drugs, medicaments and biological substances; Z88.5 Allergy status to narcotic agent; Z88.1 Allergy status to other antibiotic agents
CPT/HCPCS: 88305; 88342; 43239; J2704